=== PATIENT | male | born 1940 | race Caucasian/White ===

== ENCOUNTER → 2017-03-27 | Outpatient (CLI) | payer MEDICARE, BC ==
[~2017-03-27] VITALS: Ht 167.6 cm; Wt 73.5 kg
[~2017-03-27] MED LIST: ACTOS 45MG45 MG/TAB PO; ARAVA 20MG TABL20 MG PO; BENEFIBER PO; BIOTIN5000 MCG PO; CALCIUM 600 PLU1 TAB PO; FLONASEALLERGY NS; HCTZ 25MG TAB25 MG PO; HUMALOG100 U/ML SQ; LEVEMIR100 U/ML SQ; NEURONTIN100 MG/CAP PO; PRILOSEC 20MG20 MG PO; SINGULAIR 110 MG/TAB PO; TYLENOL 500MG500 MG PO; ZOCOR 40MG40 MG PO
[2017-03-27 08:42] VITALS: BP 147/95; PULSE 67
[2017-03-27 10:35] VITALS: BP 126/79; PULSE 58
[2017-03-27 10:45] VITALS: BP 126/79; PULSE 66
[2017-03-27 11:00] VITALS: BP 137/72; PULSE 61
[2017-03-27 11:15] VITALS: BP 130/71; PULSE 61
[2017-03-27 11:30] VITALS: BP 143/78; PULSE 67
== END ==
LOC: COL.RAD 08:24
DX: M47.816 Spondylosis without myelopathy or radiculopathy, lumbar region (principal); M48.54XA Collapsed vertebra, not elsewhere classified, thoracic region, initial encounter for fracture; M48.56XA Collapsed vertebra, not elsewhere classified, lumbar region, initial encounter for fracture; M41.9 Scoliosis, unspecified; M48.061 Spinal stenosis, lumbar region without neurogenic claudication
CPT/HCPCS: Q9965